=== PATIENT | male | born 1950 | race Caucasian/White ===

== ENCOUNTER 2018-07-18 12:27 | Inpatient (IN) | payer BC, OTHER ==
[~2018-07-18] VITALS: Ht 182.9 cm; Wt 109.1 kg
[2018-07-18] VITALS (34 sets, daily range): BP systolic 109–150; BP diastolic 51–76
[2018-07-18] MEDS ORDERED: ONDANSETRON HCL 4 MG/2 ML VIAL ONE (12:34)
[2018-07-18] MEDS ORDERED: MORPHINE SULFATE 4 MG/ML SYR/VIAL ONE (12:34)
[2018-07-18] MEDS ORDERED: SODIUM CHLORIDE 0.9% 1,000 ML IV ONE (12:35)
[2018-07-18] MEDS ORDERED: AMIODARONE HCL 900 MG in DEXTROSE 500 ML IV SCH ×2 (12:44→18:44)
[2018-07-18] MEDS ORDERED: MORPHINE SULFATE 4 MG/ML SYR/VIAL IV ONE (12:45)
[2018-07-18] MEDS ORDERED: LIDOCAINE 4MG/ML IV SOLN 500 ML IV SCH (12:45)
[2018-07-18] MEDS ORDERED: ONDANSETRON HCL 4 MG/2 ML VIAL IV ONE (12:45)
[2018-07-18] MEDS ORDERED: ETOMIDATE (2MG/ML) 20ML VIAL IV ONE ×2 (12:45→13:45)
[2018-07-18] MEDS ORDERED: SUCCINYLCHOLINE CHLORIDE 20 MG/ML 10ML VIAL IV ONE ×2 (12:46→13:45)
[2018-07-18] MEDS ORDERED: MIDAZOLAM DRIP 50 mg/50mL 50 ML IV ONE (12:54)
[2018-07-18] MEDS: MIDAZOLAM DRIP 50 mg/50mL 50 ML IV SCH ×3 (13:05→20:54)
[2018-07-18] MEDS ORDERED: fentaNYL Drip 2500mCg/250mlNS 250 ML IV ONE (13:07)
[2018-07-18] MEDS: fentaNYL Drip 2500mCg/250mlNS 250 ML IV SCH ×2 (13:15→14:45)
[2018-07-18 13:37] LABS: Albumin 3.7 g/dL (3.4-5.0); Calcium 9.4 mg/dL (8.5-10.1); Potassium 3.2 mmol/L (3.5-5.1)
[2018-07-18 13:41] LABS: BUN/Creatinine Ratio 29.8; Basophils # (auto) 0.3 uL; Basophils % (auto) 3.9 % (0.0-2.0); Bilirubin, Total 1.3 mg/dL (0.2-1.0); Eosinophils # (auto) 0 uL; Eosinophils % (auto) 0.4 % (0.0-7.0); Hematocrit 40.1 % (41.0-53.0); Hemoglobin 14.3 g/dL (13.5-17.5); Lymphocytes # (auto) 2.2 uL; Lymphocytes % (auto) 31.6 % (10.0-50.0); Mean Corpuscular Hemoglobin 33.2 pg (28.0-32.0); Mean Corpuscular Hgb Conc. 35.7 g/dL (32.0-36.0); Monocytes # (auto) 0.7 uL; Monocytes % (auto) 9.5 % (0.0-12.0); Neutrophils # (auto) 3.7 uL; Neutrophils % (auto) 54.6 % (37.0-80.0); Nucleated Red Blood Cells % 0.1 %; Platelet Count (auto) 127 10^3/uL (140-450); Red Blood Cells 4.31 10^6/uL (4.5-5.90); Red Cell Distribution Width 15.2 % (11.8-14.3); Total Protein 8.7 g/dL (6.4-8.2); White Blood Cell 6.8 10^3/uL (4.4-10.8)
[2018-07-18 13:43] LABS: Partial Thromboplastin Time 23.9 sec (23.64-32.05)
[2018-07-18 13:58] LABS: Urine Bacteria NONE SEEN /hpf (None Seen); Urine Blood Negative /uL (Negative); Urine Hyaline Cast FEW /lpf (0 - 2); Urine Specific Gravity 1.014 (1.001-1.035); Urine WBC 1 /hpf (0 - 3)
[2018-07-18] MEDS ORDERED: POTASSIUM CHL 20 Meq TABLET PO ONE (14:30)
[2018-07-18] MEDS ORDERED: NITROGLYCERIN 0.4 MG SL TAB SL PRN (14:30)
[2018-07-18] MEDS ORDERED: MORPHINE SULF INJ 2 MG/ML SYRINGE 1ML IV PRN (14:30)
[2018-07-18] MEDS ORDERED: ALBUTEROL SULF 2.5 MG/0.5ML(0.5%) NEB SOLN NEB PRN (14:30)
[2018-07-18 15:04] LABS: Alcohol, Urine < 3.0 mg/dL (0-5); Amphetamine Screen, Urine NEGATIVE (NEGATIVE); Barbiturate Scree,Urine NEGATIVE (NEGATIVE); Benzodiazephine Screen, Urine NEGATIVE (NEGATIVE); Cannabinoid Screen, Urine POSITIVE (NEGATIVE); Cocaine Screen, Urine NEGATIVE (NEGATIVE); Opiate Scree,Urine NEGATIVE (NEGATIVE); Phencyclidine Screen, Urine NEGATIVE (NEGATIVE)
[2018-07-18] MEDS: DOPamine 1600MCG/ML D5W 250 ML IV SCH (15:22)
[2018-07-18] MEDS ORDERED: POTASSIUM EFFERVESENT TAB 25 MEQ PO ONE (15:30)
[2018-07-19] VITALS (107 sets, daily range): BP systolic 82–153; BP diastolic 39–72
[2018-07-19] MEDS: DOPamine 1600MCG/ML D5W 250 ML IV SCH ×2 (04:12→17:16)
[2018-07-19 04:33] LABS: Albumin 3.3 g/dL (3.4-5.0); Calcium 8.4 mg/dL (8.5-10.1); Magnesium 2.4 mg/dL (1.6-2.6)
[2018-07-19 04:35] LABS: BUN/Creatinine Ratio 26.1
[2018-07-19 04:41] LABS: Total Protein 7.7 g/dL (6.4-8.2)
[2018-07-19 04:43] LABS: Potassium 2.3 mmol/L (3.5-5.1)
[2018-07-19] MEDS: MIDAZOLAM DRIP 50 mg/50mL 50 ML IV SCH ×4 (05:21→23:46)
[2018-07-19] MEDS: POTASSIUM CHL 20MEQ/100ML 100 ML IV SCH ×3 (06:00→09:38)
[2018-07-19] MEDS: cefTRIAXone 1GM/50ML D5W 50 ML IV SCH (09:14)
[2018-07-19] MEDS ORDERED: POTASSIUM CHL 20 Meq TABLET PO SCH (10:00)
[2018-07-19] MEDS: ENOXAPARIN SOD 40 MG/0.4 ML SYRINGE SC SCH (10:13)
[2018-07-19] MEDS: AZITHROMYCIN 500MG/ 250ML 250 ML IV SCH (10:13)
[2018-07-19] MEDS ORDERED: BUME2TAB3 PO (12:50)
[2018-07-19] MEDS ORDERED: RANO1000 PO (12:50)
[2018-07-19] MEDS ORDERED: AMIO200T33 PO (12:50)
[2018-07-19] MEDS ORDERED: ASPI-378 PO (12:50)
[2018-07-19] MEDS ORDERED: CLOP75TA41 PO (12:50)
[2018-07-19] MEDS ORDERED: ATEN50TA PO (12:50)
[2018-07-19] MEDS ORDERED: SIMV-13 PO (12:50)
[2018-07-19] MEDS ORDERED: METO-75 PO (12:50)
[2018-07-19] MEDS ORDERED: POTASSIUM CHL 20MEQ/100ML 100 ML IV ONE ×2 (15:30→22:15)
[2018-07-19] MEDS ORDERED: SODIUM CHLORIDE 0.9% 1,000 ML IV SCH ×2 (15:30→18:45)
[2018-07-19] MEDS ORDERED: POTASSIUM EFFERVESENT TAB 25 MEQ GT ONE (15:30)
[2018-07-19] MEDS: LACTULOSE 20Gm/30ML SOLN PO PRN (15:47)
[2018-07-19] MEDS: NOREPINEPHRINE 8 MG/250ML KIT 250 ML IV SCH (20:09)
[2018-07-19] MEDS: LIDOCAINE 4MG/ML IV SOLN 500 ML IV SCH (21:57)
[2018-07-19] MEDS: RANOLAZINE ER 500 MG TAB PO SCH (22:00)
[2018-07-19] MEDS: ATORVASTATIN 20 MG TAB PO SCH (22:25)
[2018-07-20] VITALS (82 sets, daily range): BP systolic 90–153; BP diastolic 28–72
[2018-07-20 04:33] LABS: Basophils # (auto) 0.1 uL; Basophils % (auto) 1.3 % (0.0-2.0); Eosinophils # (auto) 0.1 uL; Eosinophils % (auto) 1.7 % (0.0-7.0); Hematocrit 30.1 % (41.0-53.0); Hemoglobin 10.8 g/dL (13.5-17.5); Lymphocytes # (auto) 1.2 uL; Lymphocytes % (auto) 18.5 % (10.0-50.0); Mean Corpuscular Hemoglobin 33.6 pg (28.0-32.0); Mean Corpuscular Hgb Conc. 35.9 g/dL (32.0-36.0); Mean Corpuscular Volume 93.5 fL (80.0-100.0); Monocytes # (auto) 0.7 uL; Monocytes % (auto) 11.4 % (0.0-12.0); Neutrophils # (auto) 4.2 uL; Neutrophils % (auto) 67.1 % (37.0-80.0); Nucleated Red Blood Cells % 0.1 %; Platelet Count (auto) 90 10^3/uL (140-450); Red Blood Cells 3.22 10^6/uL (4.5-5.90); White Blood Cell 6.3 10^3/uL (4.4-10.8)
[2018-07-20 04:48] LABS: Calcium 8.1 mg/dL (8.5-10.1); Magnesium 2.4 mg/dL (1.6-2.6)
[2018-07-20 04:53] LABS: BUN/Creatinine Ratio 30.4
[2018-07-20 04:55] LABS: Potassium 2.9 mmol/L (3.5-5.1)
[2018-07-20] MEDS ORDERED: POTASSIUM CHL 20MEQ/100ML 100 ML IV ONE (05:45)
[2018-07-20] MEDS: DOPamine 1600MCG/ML D5W 250 ML IV SCH (05:59)
[2018-07-20] MEDS: ASPirin-EC 81 mg tab PO SCH (09:45)
[2018-07-20] MEDS: AMIODARONE HCL 200 MG TAB PO SCH (09:45)
[2018-07-20] MEDS: RANOLAZINE ER 500 MG TAB PO SCH ×2 (09:45→22:08)
[2018-07-20] MEDS: cefTRIAXone 1GM/50ML D5W 50 ML IV SCH (09:45)
[2018-07-20] MEDS: ENOXAPARIN SOD 40 MG/0.4 ML SYRINGE SC SCH (09:45)
[2018-07-20] MEDS: CLOPIDOGREL BISULFATE 75 MG TAB PO SCH (09:45)
[2018-07-20] MEDS: AZITHROMYCIN 500MG/ 250ML 250 ML IV SCH (09:45)
[2018-07-20] MEDS ORDERED: FUROSEMIDE 20 MG/2 ML VIAL IV ONE (11:00)
[2018-07-20] MEDS: POTASSIUM CHL 20MEQ/100ML 100 ML IV SCH ×5 (11:14→22:12)
[2018-07-20] MEDS: fentaNYL Drip 2500mCg/250mlNS 250 ML IV SCH (13:17)
[2018-07-20] MEDS: PIPERACILLIN-TAZOB 2.25GM 50 ML IV SCH ×2 (13:50→18:33)
[2018-07-20] MEDS: NOREPINEPHRINE 8 MG/250ML KIT 250 ML IV SCH (18:35)
[2018-07-20] MEDS: LIDOCAINE 4MG/ML IV SOLN 500 ML IV SCH (22:05)
[2018-07-20] MEDS: ATORVASTATIN 20 MG TAB PO SCH (22:07)
[2018-07-21] VITALS (31 sets, daily range): BP systolic 101–156; BP diastolic 54–75
[2018-07-21] MEDS: PIPERACILLIN-TAZOB 2.25GM 50 ML IV SCH (00:11)
[2018-07-21 04:05] LABS: Basophils # (auto) 0 uL; Basophils % (auto) 0.5 % (0.0-2.0); Eosinophils # (auto) 0.1 uL; Eosinophils % (auto) 1.8 % (0.0-7.0); Hematocrit 33.1 % (41.0-53.0); Hemoglobin 11.9 g/dL (13.5-17.5); Lymphocytes # (auto) 0.9 uL; Lymphocytes % (auto) 14.8 % (10.0-50.0); Mean Corpuscular Hemoglobin 33.4 pg (28.0-32.0); Mean Corpuscular Hgb Conc. 35.9 g/dL (32.0-36.0); Mean Corpuscular Volume 93.1 fL (80.0-100.0); Monocytes # (auto) 0.6 uL; Monocytes % (auto) 10.1 % (0.0-12.0); Neutrophils # (auto) 4.5 uL; Neutrophils % (auto) 72.8 % (37.0-80.0); Nucleated Red Blood Cells % 0.1 %; Platelet Count (auto) 96 10^3/uL (140-450); Red Blood Cells 3.56 10^6/uL (4.5-5.90); Red Cell Distribution Width 14.7 % (11.8-14.3); White Blood Cell 6.2 10^3/uL (4.4-10.8)
[2018-07-21 04:16] LABS: Calcium 8.6 mg/dL (8.5-10.1); Potassium 3.4 mmol/L (3.5-5.1)
[2018-07-21 04:18] LABS: BUN/Creatinine Ratio 29.7
[2018-07-21] MEDS: PIPERACILLIN-TAZOB 3.375GM 100 ML IV SCH ×3 (05:58→17:35)
[2018-07-21] MEDS ORDERED: POTASSIUM EFFERVESENT TAB 25 MEQ GT SCH (10:00)
[2018-07-21] MEDS: AMIODARONE HCL 200 MG TAB PO SCH (10:00)
[2018-07-21] MEDS ORDERED: FUROSEMIDE 40 MG/4 ML VIAL IV ONE (10:15)
[2018-07-21] MEDS: ENOXAPARIN SOD 40 MG/0.4 ML SYRINGE SC SCH ×2 (10:53→10:55)
[2018-07-21] MEDS: CLOPIDOGREL BISULFATE 75 MG TAB PO SCH (10:53)
[2018-07-21] MEDS: LACTULOSE 20Gm/30ML SOLN PO PRN (10:53)
[2018-07-21] MEDS: ASPirin-EC 81 mg tab PO SCH (10:54)
[2018-07-21] MEDS: RANOLAZINE ER 500 MG TAB PO SCH ×2 (10:54→21:49)
[2018-07-21] MEDS: POTASSIUM CHL 20MEQ/100ML 100 ML IV SCH ×2 (10:56→14:57)
[2018-07-21] MEDS: NICOTINE 21MG/24 HR TOPICAL PATCH TD SCH (19:42)
[2018-07-21] MEDS: ATORVASTATIN 20 MG TAB PO SCH (21:48)
[2018-07-21] MEDS: METOPROLOL TARTRATE 25 MG TAB PO SCH (21:48)
[2018-07-22 00:32] VITALS: BP 132/64
[2018-07-22 05:08] VITALS: BP 123/63
[2018-07-22] MEDS: PIPERACILLIN-TAZOB 3.375GM 100 ML IV SCH ×4 (05:40→17:31)
[2018-07-22 07:43] LABS: Basophils # (auto) 0 uL; Basophils % (auto) 0.4 % (0.0-2.0); Eosinophils # (auto) 0.1 uL; Eosinophils % (auto) 2.4 % (0.0-7.0); Hematocrit 33.9 % (41.0-53.0); Hemoglobin 12.1 g/dL (13.5-17.5); Lymphocytes # (auto) 0.8 uL; Lymphocytes % (auto) 15.7 % (10.0-50.0); Mean Corpuscular Hemoglobin 33.1 pg (28.0-32.0); Mean Corpuscular Hgb Conc. 35.6 g/dL (32.0-36.0); Mean Corpuscular Volume 92.8 fL (80.0-100.0); Monocytes # (auto) 0.6 uL; Monocytes % (auto) 10.4 % (0.0-12.0); Neutrophils # (auto) 3.8 uL; Neutrophils % (auto) 71.1 % (37.0-80.0); Platelet Count (auto) 113 10^3/uL (140-450); Red Blood Cells 3.65 10^6/uL (4.5-5.90); Red Cell Distribution Width 14.7 % (11.8-14.3); White Blood Cell 5.4 10^3/uL (4.4-10.8)
[2018-07-22 08:01] LABS: Calcium 9.5 mg/dL (8.5-10.1); Potassium 3.4 mmol/L (3.5-5.1)
[2018-07-22 08:03] LABS: BUN/Creatinine Ratio 21.1
[2018-07-22] MEDS: CLOPIDOGREL BISULFATE 75 MG TAB PO SCH (09:53)
[2018-07-22] MEDS: AMIODARONE HCL 200 MG TAB PO SCH (09:53)
[2018-07-22] MEDS: METOPROLOL TARTRATE 25 MG TAB PO SCH ×2 (09:53→22:35)
[2018-07-22] MEDS: ASPirin-EC 81 mg tab PO SCH (09:54)
[2018-07-22] MEDS: RANOLAZINE ER 500 MG TAB PO SCH ×2 (09:54→22:35)
[2018-07-22] MEDS: NICOTINE 21MG/24 HR TOPICAL PATCH TD SCH (09:54)
[2018-07-22] MEDS: ENOXAPARIN SOD 40 MG/0.4 ML SYRINGE SC SCH (09:58)
[2018-07-22 13:00] VITALS: BP 153/72
[2018-07-22] MEDS ORDERED: POTASSIUM CHL 20 Meq TABLET PO ONE (15:15)
[2018-07-22 21:30] VITALS: BP 166/74
[2018-07-22] MEDS: ATORVASTATIN 20 MG TAB PO SCH (22:35)
[2018-07-23] VITALS (7 sets, daily range): BP systolic 152–165; BP diastolic 79–88
[2018-07-23] MEDS: PIPERACILLIN-TAZOB 3.375GM 100 ML IV SCH ×3 (00:22→12:00)
[2018-07-23] MEDS: hydrALAZINE HCL 20 MG/ML VL IV PRN ×2 (04:08→13:06)
[2018-07-23 07:17] LABS: Basophils # (auto) 0 uL; Basophils % (auto) 0.5 % (0.0-2.0); Eosinophils # (auto) 0.1 uL; Eosinophils % (auto) 1.3 % (0.0-7.0); Hematocrit 35.6 % (41.0-53.0); Hemoglobin 12.8 g/dL (13.5-17.5); Lymphocytes # (auto) 1.1 uL; Lymphocytes % (auto) 20.4 % (10.0-50.0); Mean Corpuscular Hgb Conc. 35.8 g/dL (32.0-36.0); Mean Corpuscular Volume 92.1 fL (80.0-100.0); Monocytes # (auto) 0.6 uL; Monocytes % (auto) 11.1 % (0.0-12.0); Neutrophils # (auto) 3.6 uL; Neutrophils % (auto) 66.7 % (37.0-80.0); Nucleated Red Blood Cells % 0.1 %; Platelet Count (auto) 124 10^3/uL (140-450); Red Blood Cells 3.87 10^6/uL (4.5-5.90); Red Cell Distribution Width 14.4 % (11.8-14.3); White Blood Cell 5.4 10^3/uL (4.4-10.8)
[2018-07-23 07:38] LABS: Calcium 9.4 mg/dL (8.5-10.1); Magnesium 2.2 mg/dL (1.6-2.6); Potassium 3.3 mmol/L (3.5-5.1)
[2018-07-23 07:41] LABS: BUN/Creatinine Ratio 15.6
[2018-07-23] MEDS: AMIODARONE HCL 200 MG TAB PO SCH (09:59)
[2018-07-23] MEDS: NICOTINE 21MG/24 HR TOPICAL PATCH TD SCH (10:00)
[2018-07-23] MEDS: ASPirin-EC 81 mg tab PO SCH (10:00)
[2018-07-23] MEDS: METOPROLOL TARTRATE 25 MG TAB PO SCH (10:01)
[2018-07-23] MEDS: CLOPIDOGREL BISULFATE 75 MG TAB PO SCH (10:01)
[2018-07-23] MEDS: ENOXAPARIN SOD 40 MG/0.4 ML SYRINGE SC SCH (10:02)
[2018-07-23] MEDS: RANOLAZINE ER 500 MG TAB PO SCH (10:02)
[2018-07-23] MEDS ORDERED: POTASSIUM CHL 20 Meq TABLET PO ONE (12:45)
[2018-07-23] MEDS ORDERED: METOPROLOL TARTRATE 25 MG TAB PO ONE (13:15)
== END 2018-07-23 17:20 | disposition home or self-care (01) | DRG 871 ==
LOC: EDBD 12:27 → ER 12:31 → TELE 13:21 → ICU WEST 17:05 → TELE-EAST 07-21 13:23
PROVIDERS: ADMIT Internal Medicine; ATTEND Internal Medicine
PROC: 5A1945Z Respiratory Ventilation, 24-96 Consecutive Hours (ICD-10-PCS; principal; 2018-07-18)
PROC: 0BH18EZ Insertion of Endotracheal Airway into Trachea, Via Natural or Artificial Opening Endoscopic (ICD-10-PCS; 2018-07-18)
PROC: 4B02XTZ Measurement of Cardiac Defibrillator, External Approach (ICD-10-PCS; 2018-07-20)
DX: A41.9 Sepsis, unspecified organism (principal); N17.0 Acute kidney failure with tubular necrosis; I50.43 Acute on chronic combined systolic (congestive) and diastolic (congestive) heart failure; J96.00 Acute respiratory failure, unspecified whether with hypoxia or hypercapnia; I49.01 Ventricular fibrillation; R57.0 Cardiogenic shock; J69.0 Pneumonitis due to inhalation of food and vomit; I13.0 Hypertensive heart and chronic kidney disease with heart failure and stage 1 through stage 4 chronic kidney disease, or unspecified chronic kidney disease; I42.9 Cardiomyopathy, unspecified; I47.2 Ventricular tachycardia; N18.3 Chronic kidney disease, stage 3 (moderate); I25.10 Atherosclerotic heart disease of native coronary artery without angina pectoris; E87.6 Hypokalemia; D69.6 Thrombocytopenia, unspecified; E66.9 Obesity, unspecified; E78.5 Hyperlipidemia, unspecified; F12.90 Cannabis use, unspecified, uncomplicated; H81.10 Benign paroxysmal vertigo, unspecified ear; I05.0 Rheumatic mitral stenosis; I27.20 Pulmonary hypertension, unspecified; J44.9 Chronic obstructive pulmonary disease, unspecified; I70.0 Atherosclerosis of aorta; Z68.32 Body mass index [BMI] 32.0-32.9, adult; Z95.810 Presence of automatic (implantable) cardiac defibrillator; Z79.899 Other long term (current) drug therapy; Z95.5 Presence of coronary angioplasty implant and graft; Z95.1 Presence of aortocoronary bypass graft; Z87.891 Personal history of nicotine dependence
CPT/HCPCS: 31500; 36415; 36556; 36600; 71045; 76775; 80048; 80053; 80061; 80307; 81001; 82550; 82805; 83735; 83880; 84132; 84443; 84484; 85025; 85610; 85652; 85730; 86141; 87040; 87070; 87081; 87205; 93005; 93306; 94002; 94003; 94660; 94761; 94762; 96374; 96375; 97163; 99291; G0378; J0330; J0696; J2250; J2405; J2543; J3480